=== PATIENT | female | born 1940 | race Caucasian/White ===

== ENCOUNTER 2020-10-21 17:50 | Outpatient (REF) | payer MEDICARE, OTHER, SELFPAY ==
[2020-10-21 21:04] LABS: Abs Immature Grans 0.04 10^3/uL (0.0-0.06); Absolute Basophil Count 0.04 10^3/uL (0.0-0.2); Absolute Eosinophil Count 0.14 10^3/uL (0.0-0.7); Absolute Lymphocyte Count 1.91 10^3/uL (1.2-3.4); Absolute Monocyte Count 1.05 10^3/uL (0.1-0.8); Basophils % 0.4; Eosinophils % 1.3; HCT 44.7 % (36.0-46.0); HGB 14.7 g/dL (11.2-15.7); Immature Grans % 0.4; Lymphocytes % 17.2; MCH 29.8 pg (27.0-33.0); MCHC 32.9 % (32.0-36.0); MCV 90.7 fL (80-95); Monocytes % 9.5; Neutrophils % 71.2; Nucleated RBC 0 %; Platelet Count 165 10^3/uL (130-400); RBC 4.93 10^6/uL (3.93-5.22); RDW 13.8 % (11.7-14.6); RDW-SD 46.3 fL
[2020-10-21 21:30] LABS: ALT 21 U/L (14-59); AST 10 U/L (15-37); Albumin 3.6 g/dL (3.4-5.0); Alkaline Phosphatase 88 U/L (46-116); Anion Gap 10.7 mmol/L (3-11); BUN 11 mg/dL (7-18); Bilirubin, Total 1.3 mg/dL (0.2-1.0); CO2 26.3 mmol/L (21.0-32.0); CREATININE 0.9 mg/dL (0.55-1.02); Calcium 8.8 mg/dL (8.5-10.1); Chloride 105 mmol/L (98-107); Glucose 91 mg/dL (74-106); Potassium 4.2 mmol/L (3.5-5.1); Sodium 142 mmol/L (136-145); Total Protein 7.3 g/dL (6.4-8.2)
== END 2020-10-21 17:51 | disposition home or self-care (01) ==
LOC: NCHCN 17:50
PROVIDERS: PCP Family Medicine; Visit Provider Registered Nurse
DX: R10.9 Unspecified abdominal pain (principal)
CPT/HCPCS: 80053; 87077; 85025; 87086; 87186

== ENCOUNTER 2022-09-28 13:09 | Outpatient (REF) | payer MEDICARE, OTHER, SELFPAY ==
--- OUTSIDE RECORDS SUMMARY | 2022-09-28 13:22 | XMS_ITS | CCD ---
Author Name Unknown Address [address] [place] [address] [id number] Organization Unknown Address [address] [place] [address] [id number] Care Team Providers Care Heater Installer Name Role Phone CRISTIANA CLEANING Attending Physician [phone] CRISTIANA CLEANING Er Physician [phone] LAMAR Lugo Registered Nurse [phone] DALJIT Hollis Registered Nurse [phone] Vital Signs Vital Sign Value Unit Date/Time Recent/Initial ? Height 62 in 09/18/2022 08:20 Most Rec ent VS BP Systolic 158 mmHg 09/18/2022 08:20 Initial VS BP Diastolic 109 mmHg 09/18/2022 08:20 Initia l VS Respiratory Rate 22 bpm 09/18/2022 08:20 In itial VS Heart Rate 112 bpm 09/18/2022 08:20 Initial VS O2 % BldC Oximetry 96 % 09/18/2022 08:20 Initial VS Body Temperature 37 degrees 09/18/2022 08:20 In itial VS Weight Measured 224 lbs 09/18/2022 09:03 Ini tial VS BP Systolic 139 mmHg 09/18/2022 13:37 Most Re cent VS BP Diastolic 80 mmHg 09/18/2022 13:37 Most R ecent VS Respiratory Rate 16 bpm 09/18/2022 13:[address] Recent VS Heart Rate 78 bpm 09/18/2022 13:37 Most Rec ent VS O2 % BldC Oximetry 97 % 09/18/2022 13:37 Most Recent VS Body Temperature 36.6 degrees 09/18/2022 13:[address] Recent VS Allergies Allergy Code Allergy Type Reaction Status No Known Drug Allergies 0 No known drug allergies Active Procedures Unknown or Not Available. History of Immunizations Unknown or Not Available. Problems Problem Code Start Date Resolved Date Status Sleep apnea [id number] Active Results COMPREHENSIVE METABOLIC PANE L (CMP) - Collect Date/Time: 09/18/2022 08:50 Test Name Code Test Result Test Units Test Ref Rang e GLUCOSE 2345-7 120 mg/dL L=70 H=116 BUN 3094-0 19 mg/dL L=6 H=25 CREATININE 2160-0 0.90 mg/dL L=0.51 H=0.95 SODIUM SERUM 2951-2 136 mmol/L L=136 H=145 POTASSIUM SERUM 2823-3 4.1 mmol/L L=3.4 H=5 .2 CHLORIDE SERUM 2075-0 103 mmol/L L=96 H=110 CARBON DIOXIDE (CO2) 2028-9 27 mmol/L L=22 H=34 ANION GAP 42852-2 6.2 mmol/L CALCIUM SERUM 20437-7 9.2 mg/dL L=8.2 H=10. 2 BILIRUBIN TOTAL 1975-2 0.6 mg/dL L=0.0 H=1 .3 ALK. PHOS. 6768-6 90 U/L L=46 H=116 SGOT (AST) 1920-8 15 U/L L=15 H=37 SGPT (ALT) 1742-6 25 U/L L=12 H=78 TOTAL PROTEIN 2885-2 7.4 gm/dL L=6.0 H=8.0 ALBUMIN 1751-7 3.5 gm/dL L=3.4 H=5.0 AGE 82 years eGFR (non-Afr.Amer.) 05204-9 60 mL/min eGFR (Afr-Senegalese) 13244-2 73 mL/min LACTIC ACID - Collect Date/T bonnie: 09/18/2022 08:50 Test Name Code Test Result Test Units Test Ref Rang e LACTIC ACID 09805-3 1.8 mmol/L L=0.7 H=2.1 LIPASE* NEW - Collect Date/T bonnie: 09/18/2022 08:50 Test Name Code Test Result Test Units Test Ref Rang e LIPASE. 50 U/L L=16 H=77 CBC W/ DIFFERENTIAL* - Colle ct Date/Time: 09/18/2022 08:50 Test Name Code Test Result Test Units Test Ref Rang e WBC 6690-2 8.89 th/cmm L=5.00 H=10.00 NEUT % 86.1 % L=40.0 H=80.0 LYMPH % 6.9 % L=10.0 H=50.0 MONO % 76657-0 5.1 % L=2.0 H=12.0 EOS % 1.3 % L=0.0 H=8.0 BASO % 0.4 % L=0.0 H=3.0 IG % 2514-8 0.2 % L=0.0 H=1.1 NRBC % 16171-9 0.0 % L=0.0 H=0.0 NEUT abs count 751-8 7.7 th/cmm L=1.6 H=8. 4 LYMPH abs count 731-0 0.6 th/cmm L=1.5 H=4 .0 MONO abs count 742-7 0.5 th/cmm L=0.2 H=1. 0 EOS abs count 711-2 0.1 th/cmm L=0.0 H=0.5 BASO abs count 704-7 0.0 th/cmm L=0.0 H=0. 2 IG abs count 05625-0 0.0 th/cmm L=0.0 H=0.1 NRBC abs count 47194-0 0.0 mil/cmm L=0.0 H=0. 0 RBC 789-8 5.02 mil/cmm L=3.90 H=5.40 HEMOGLOBIN 718-7 15.3 gm/dL L=12.0 H=16.0 HEMATOCRIT 4544-3 46 % L=37 H=47 MCV 787-2 92 fL L=82 H=92 MCH 785-6 30.5 pg L=27.0 H=31.0 MCHC 786-4 33.0 % L=32.0 H=36.0 RDW-SD 788-0 46.2 fL L=39.0 H=49.0 PLATELET COUNT 777-3 173 th/cmm L=150 H=45 0 URINALYSIS WITH REFLEX CULT IF POSITIVE* - Collect Date/Time: 09/18/2022 09:50 Test Name Code Test Result Test Units Test Ref Rang e COLLECTION MODE: 65649-0 CLEAN CATCH N/A Color 5778-6 YELLOW N/A yellow Appearance 5767-9 CLEAR N/A clear Glucose urine 93871-0 NEGATIVE N/A negative mg /dl Bilirubin 5770-3 NEGATIVE N/A negative Ketones 2514-8 NEGATIVE N/A negative mg/dl Spec gravity 5811-5 1.010 N/A 1.003 - 1.03 0 pH urine 2756-5 7.0 N/A 5.0 - 7.0 Protein 89974-5 NEGATIVE N/A negative mg/dl Urobilinogen 98298-5 0.2 N/A <or= 1 EU/dl Nitrite. 5802-4 NEGATIVE N/A negative Blood 5794-3 NEGATIVE N/A negative Leukocytes. NEGATIVE N/A negative MICROSCOPIC NOT INDICAT N/A Active Medications Unknown or Not Available. Medications Administered During Visit Medication Dose Units Frequency Route Date/Time of Last Dose SODIUM CHLORIDE 0.9% 500ML 500 ML X1 IV 09/18/2022 09:03 ACETAMINOPHEN INJ IVPB: 1000MG/100ML 1000 MG X1 IVPB 09/18/2022 11:2 0 AMPICILLIN/SULBACTAM INJ SDV: 3GM 3 GM X1 IVPB 09/18/2022 12:47 Encounters Encounter Diagnosis Diagnosis Code Start Date Diverticulitis of large intestine without compli cation [id number] 09/18/2022 Social History Smoking Status Code Start Date End Date Never smoker [id number] Patient Decision Aids Unknown or Not Available. Discharge Instructions You were admitted to [facility] on 09/18/2022 08:08 with a principal diagnosis of Diverticulitis of large intestine without perforation or abscess without bleeding You had the following tests done:URINALYSIS WITH REFLEX CULT IF POSITIVE*CBC W/ DIFFERENTIAL*COMPREHENSIVE METABOLIC PANEL (CMP)LACTIC ACIDLIPASE* NEW You were discharged from [facility] on 09/18/2022 13:53 Should you have any questions prior to discharge, please contact a member of your healthcare team. If you have left the hospital and have any questions, please contact your primary care physician. Chief Complaint and Reason For Visit Chief Complaint Date of Onset ABDOMEN PAIN NAUSEA Function Status Unknown or Not Available. Plan of Care Unknown or Not Available. Referral/Transition of Care Unknown or Not Available.
--- OUTSIDE RECORDS SUMMARY | 2022-09-28 13:23 | XMS_ITS | CCD ---
Author Name Unknown Address [address] [place] [address] [phone] Organization Unknown Address [address] [place] [address] [phone] Care Team Providers Care Master Sheet Clerk Name Role Phone TALI BARBA MD Attending Physician [phone] TALI BARBA MD Er Physician [phone] Vital Signs Unknown or Not Available. Allergies Allergy Code Allergy Type Reaction Status No Known Drug Allergies 0 No known drug allergies Active Procedures Unknown or Not Available. History of Immunizations Unknown or Not Available. Problems Problem Code Start Date Resolved Date Status Sleep apnea [id number] Active Results COMPREHENSIVE METABOLIC PANE L (CMP) - Collect Date/Time: 10/25/2020 09:29 Test Name Code Test Result Test Units Test Ref Rang e GLUCOSE 2345-7 96 mg/dL L=70 H=116 BUN 3094-0 10 mg/dL L=6 H=25 CREATININE 2160-0 0.91 mg/dL L=0.51 H=0.95 SODIUM SERUM 2951-2 141 mmol/L L=136 H=145 POTASSIUM SERUM 2823-3 3.5 mmol/L L=3.4 H=5 .2 CHLORIDE SERUM 2075-0 104 mmol/L L=96 H=110 CARBON DIOXIDE (CO2) 2028-9 27 mmol/L L=22 H=34 ANION GAP 25540-4 9.7 mmol/L CALCIUM SERUM 82577-4 8.9 mg/dL L=8.2 H=10. 2 BILIRUBIN TOTAL 1975-2 0.5 mg/dL L=0.0 H=1 .3 ALK. PHOS. 6768-6 85 U/L L=46 H=116 SGOT (AST) 1920-8 16 U/L L=15 H=37 SGPT (ALT) 1742-6 26 U/L L=12 H=78 TOTAL PROTEIN 2885-2 7.8 gm/dL L=6.0 H=8.0 ALBUMIN 1751-7 3.4 gm/dL L=3.4 H=5.0 AGE 80 years eGFR (non-Afr.Amer.) 98891-6 59 mL/min eGFR (Afr-Senegalese) 93452-7 72 mL/min LACTIC ACID - Collect Date/T bonnie: 10/25/2020 09:29 Test Name Code Test Result Test Units Test Ref Rang e LACTIC ACID 88763-8 1.8 mmol/L L=0.7 H=2.1 CBC W/ DIFFERENTIAL - [facility] t Date/Time: 10/25/2020 09:29 Test Name Code Test Result Test Units Test Ref Rang e WBC 6690-2 4.17 th/cmm L=5.00 H=10.00 NEUT % 59.9 % L=40.0 H=80.0 LYMPH % 24.7 % L=10.0 H=50.0 MONO % 23108-2 10.6 % L=2.0 H=12.0 EOS % 3.4 % L=0.0 H=8.0 BASO % 1.2 % L=0.0 H=3.0 IG % 2514-8 0.2 % L=0.0 H=1.1 NRBC % 41237-6 0.0 % L=0.0 H=0.0 NEUT abs count 751-8 2.5 th/cmm L=1.6 H=8. 4 LYMPH abs count 731-0 1.0 th/cmm L=1.5 H=4 .0 MONO abs count 742-7 0.4 th/cmm L=0.2 H=1. 0 EOS abs count 711-2 0.1 th/cmm L=0.0 H=0.5 BASO abs count 704-7 0.1 th/cmm L=0.0 H=0. 2 IG abs count 20036-9 0.0 th/cmm L=0.0 H=0.1 NRBC abs count 18503-2 0.0 mil/cmm L=0.0 H=0. 0 RBC 789-8 4.98 mil/cmm L=3.90 H=5.40 HEMOGLOBIN 718-7 15.0 gm/dL L=12.0 H=16.0 HEMATOCRIT 4544-3 45 % L=37 H=47 MCV 787-2 90 fL L=82 H=92 MCH 785-6 30.1 pg L=27.0 H=31.0 MCHC 786-4 33.5 % L=32.0 H=36.0 RDW-SD 788-0 43.4 fL L=39.0 H=49.0 PLATELET COUNT 777-3 231 th/cmm L=150 H=45 0 PT PROTHROMBIN TIME - Collec t Date/Time: 10/25/2020 09:45 Test Name Code Test Result Test Units Test Ref Rang e PROTIME 5902-2 11.5 seconds L=9.3 H=11.4 INR 63384-6 1.13 L=2.00 H=3.00 TYPE AND SCREEN - Collect Da te/Time: 10/25/2020 09:29 Test Name Code Test Result Test Units Test Ref Rang e Blood Group 883-9 O N/A Rh (D) 09505-4 POSITIVE N/A Antibody Screen 1005-8 NEGATIVE N/A Active Medications Medication Code Dose Units Frequency Route Modificatio n Start Date/Time Augmentin 875MG-125MG Oral Tablet 948228 1 TABLET TWICE A DAY ORAL 09/25/19 17:50 Prescription Detail TAKE 1 TABLET ORAL TWICE A DAY Augmentin 875MG-125MG Oral Tablet 080585 1 TABLET TWICE A DAY ORAL 09/19/19 12:57 Prescription Detail TAKE 1 TABLET ORAL TWICE A DAY Ondansetron 4MG Oral Tablet, Disintegrating 637179 1 TABLET NEEDED EVERY 6 HOURS ORAL 09/18/2022 12:57 Prescription Detail TAKE 1 TABLET ORAL NEEDED EVERY 6 SHERINE RS FOR Nausea/Vomiting LORazepam 0.5MG Oral Tablet 994415 0.5 MILLIGRAMS NEEDED AT BEDTIME BY MOUTH 04/14/2014 09:46 Prescription Detail TAKE 0.5 MILLIGRAMS BY MOUTH NEEDED A T BEDTIME Medications Administered During Visit Unknown or Not Available. Encounters Encounter Diagnosis Diagnosis Code Start Date Diverticulitis of intestine, part unspecified, without perforation or abscess without bleeding K5792 10/25/2020 Social History Smoking Status Code Start Date End Date Never smoker [id number] Patient Decision Aids Unknown or Not Available. Discharge Instructions You were admitted to [facility] 01 on 10/25/2020 08:47 with a principal diagnosis of Diverticulitis of intestine, part unspecified, without perforation or abscess without bleeding You had the following tests done:PT PROTHROMBIN TIMECBC W/ DIFFERENTIALCOMPREHENSIVE METABOLIC PANEL (CMP)LACTIC ACIDTYPE AND SCREEN You were discharged from [facility] on 10/25/2020 11:05 Should you have any questions prior to discharge, please contact a member of your healthcare team. If you have left the hospital and have any questions, please contact your primary care physician. Chief Complaint and Reason For Visit Chief Complaint Date of Onset BLEEDING FROM COLON Function Status Unknown or Not Available. Plan of Care Unknown or Not Available. Referral/Transition of Care Unknown or Not Available.
--- OUTSIDE RECORDS SUMMARY | 2022-09-28 13:23 | XMS_ITS | CCD ---
Author Name Unknown Address [address] [place] [address] [id number] Organization Unknown Address [address] [place] [address] [phone] Care Team Providers Care Hand Candy Dipper Name Role Phone GINO JOSHI Attending Physician [phone] TOLU NOYOLA Er Physician 1 [phone] FILIBERTO Adams Registered Nurse [phone] Vital Signs Vital Sign Value Unit Date/Time Recent/Initial ? BMI (Body Mass Index) 39.65 kg/m^2 09/24/2022 14: 58 Initial VS Weight Measured 216.8 lbs 09/24/2022 14:58 Ini tial VS Height 62 in 09/24/2022 14:58 Initial VS BSA (Body Surface Area) 2.07 m^2 09/24/2022 1 4:58 Initial VS BP Systolic 147 mmHg 09/24/2022 14:58 Initial VS BP Diastolic 81 mmHg 09/24/2022 14:58 Initia l VS Respiratory Rate 20 bpm 09/24/2022 14:58 In itial VS Heart Rate 73 bpm 09/24/2022 14:58 Initial VS O2 % BldC Oximetry 97 % 09/24/2022 14:58 Initial VS Body Temperature 36.6 degrees 09/24/2022 14:58 In itial VS BP Systolic 135 mmHg 09/24/2022 18:00 Most Re cent VS BP Diastolic 95 mmHg 09/24/2022 18:00 Most R ecent VS Respiratory Rate 18 bpm 09/24/2022 18:[address] Recent VS Heart Rate 61 bpm 09/24/2022 18:00 Most Rec ent VS O2 % BldC Oximetry 97 % 09/24/2022 18:00 Most Recent VS Allergies Allergy Code Allergy Type Reaction Status No Known Drug Allergies 0 No known drug allergies Active Procedures Unknown or Not Available. History of Immunizations Unknown or Not Available. Problems Problem Code Start Date Resolved Date Status Sleep apnea [id number] Active Results COMPREHENSIVE METABOLIC PANE L (CMP) - Collect Date/Time: 09/24/2022 15:00 Test Name Code Test Result Test Units Test Ref Rang e GLUCOSE 2345-7 95 mg/dL L=70 H=116 BUN 3094-0 8 mg/dL L=6 H=25 CREATININE 2160-0 0.96 mg/dL L=0.51 H=0.95 SODIUM SERUM 2951-2 138 mmol/L L=136 H=145 POTASSIUM SERUM 2823-3 3.2 mmol/L L=3.4 H=5 .2 CHLORIDE SERUM 2075-0 104 mmol/L L=96 H=110 CARBON DIOXIDE (CO2) 2028-9 24 mmol/L L=22 H=34 ANION GAP 53351-0 10.1 mmol/L CALCIUM SERUM 36689-9 9.2 mg/dL L=8.2 H=10. 2 BILIRUBIN TOTAL 1975-2 0.7 mg/dL L=0.0 H=1 .3 ALK. PHOS. 6768-6 75 U/L L=46 H=116 SGOT (AST) 1920-8 19 U/L L=15 H=37 SGPT (ALT) 1742-6 29 U/L L=12 H=78 TOTAL PROTEIN 2885-2 7.7 gm/dL L=6.0 H=8.0 ALBUMIN 1751-7 3.8 gm/dL L=3.4 H=5.0 AGE 82 years eGFR (non-Afr.Amer.) 35250-1 56 mL/min eGFR (Afr-Tongan) 71312-6 67 mL/min LIPASE* NEW - Collect Date/T bonnie: 09/24/2022 15:00 Test Name Code Test Result Test Units Test Ref Rang e LIPASE. 40 U/L L=16 H=77 CBC W/ DIFFERENTIAL* - Colle ct Date/Time: 09/24/2022 15:00 Test Name Code Test Result Test Units Test Ref Rang e WBC 6690-2 8.46 th/cmm L=5.00 H=10.00 NEUT % 68.2 % L=40.0 H=80.0 LYMPH % 20.9 % L=10.0 H=50.0 MONO % 43267-3 7.7 % L=2.0 H=12.0 EOS % 2.5 % L=0.0 H=8.0 BASO % 0.5 % L=0.0 H=3.0 IG % 2514-8 0.2 % L=0.0 H=1.1 NRBC % 28186-2 0.0 % L=0.0 H=0.0 NEUT abs count 751-8 5.8 th/cmm L=1.6 H=8. 4 LYMPH abs count 731-0 1.8 th/cmm L=1.5 H=4 .0 MONO abs count 742-7 0.7 th/cmm L=0.2 H=1. 0 EOS abs count 711-2 0.2 th/cmm L=0.0 H=0.5 BASO abs count 704-7 0.0 th/cmm L=0.0 H=0. 2 IG abs count 60319-3 0.0 th/cmm L=0.0 H=0.1 NRBC abs count 72176-7 0.0 mil/cmm L=0.0 H=0. 0 RBC 789-8 5.27 mil/cmm L=3.90 H=5.40 HEMOGLOBIN 718-7 15.8 gm/dL L=12.0 H=16.0 HEMATOCRIT 4544-3 47 % L=37 H=47 MCV 787-2 90 fL L=82 H=92 MCH 785-6 30.0 pg L=27.0 H=31.0 MCHC 786-4 33.3 % L=32.0 H=36.0 RDW-SD 788-0 43.4 fL L=39.0 H=49.0 PLATELET COUNT 777-3 189 th/cmm L=150 H=45 0 Active Medications Unknown or Not Available. Medications Administered During Visit Medication Dose Units Frequency Route Date/Time of Last Dose SODIUM CHLORIDE 0.9% 500ML 500 ML X1 IV 09/24/2022 15:04 Encounters Encounter Diagnosis Diagnosis Code Start Date Diverticulitis of intestine, part unspecified, without perforation or abscess with bleeding [id number] 09/24/2022 Social History Smoking Status Code Start Date End Date Never smoker [id number] Patient Decision Aids Unknown or Not Available. Discharge Instructions You were admitted to [facility] on 09/24/2022 14:37 with a principal diagnosis of Diverticulitis of intestine, part unspecified, without perforation or abscess with bleeding You had the following tests done:CBC W/ DIFFERENTIAL*COMPREHENSIVE METABOLIC PANEL (CMP)LIPASE* NEW You were discharged from [facility] on 09/24/2022 18:06 Should you have any questions prior to discharge, please contact a member of your healthcare team. If you have left the hospital and have any questions, please contact your primary care physician. Chief Complaint and Reason For Visit Chief Complaint Date of Onset BLOOD IN STOOL Function Status Unknown or Not Available. Plan of Care Unknown or Not Available. Referral/Transition of Care Unknown or Not Available.
--- OUTSIDE RECORDS SUMMARY | 2022-09-28 13:23 | XMS_ITS | CCD ---
Author Name Unknown Address [address] [place] [address] [phone] Organization Unknown Address [address] [place] [address] [phone] Care Team Providers Care Capital Markets Specialist Name Role Phone LYNNDEBHA Attending Physician [phone] Vital Signs Unknown or Not Available. Allergies Allergy Code Allergy Type Reaction Status No Known Drug Allergies 0 No known drug allergies Active Procedures Unknown or Not Available. History of Immunizations Unknown or Not Available. Problems Problem Code Start Date Resolved Date Status Sleep apnea [id number] Active Results Unknown or Not Available. Active Medications Medication Code Dose Units Frequency Route Modificatio n Start Date/Time Augmentin 875MG-125MG Oral Tablet 070873 1 TABLET TWICE A DAY ORAL 09/25/19 17:50 Prescription Detail TAKE 1 TABLET ORAL TWICE A DAY Augmentin 875MG-125MG Oral Tablet 281735 1 TABLET TWICE A DAY ORAL 09/19/19 12:57 Prescription Detail TAKE 1 TABLET ORAL TWICE A DAY Ondansetron 4MG Oral Tablet, Disintegrating 323813 1 TABLET NEEDED EVERY 6 HOURS ORAL 09/18/2022 12:57 Prescription Detail TAKE 1 TABLET ORAL NEEDED EVERY 6 SHERINE RS FOR Nausea/Vomiting LORazepam 0.5MG Oral Tablet 132713 0.5 MILLIGRAMS NEEDED AT BEDTIME BY MOUTH 04/14/2014 09:46 Prescription Detail TAKE 0.5 MILLIGRAMS BY MOUTH NEEDED A T BEDTIME Medications Administered During Visit Unknown or Not Available. Encounters Encounter Diagnosis Diagnosis Code Start Date Diverticulitis of large inte mirta without perforation or abscess without bleeding K5732 10/22/2020 Social History Smoking Status Code Start Date End Date Never smoker [id number] Patient Decision Aids Unknown or Not Available. Discharge Instructions You were admitted to [facility] on 10/22/2020 09:37 with a principal diagnosis of Diverticulitis of large intestine without perforation or abscess without bleeding You were discharged from [facility] 01 on 10/22/2020 09:37 Should you have any questions prior to discharge, please contact a member of your healthcare team. If you have left the hospital and have any questions, please contact your primary care physician. Chief Complaint and Reason For Visit Unknown or Not Available. Function Status Unknown or Not Available. Plan of Care Unknown or Not Available. Referral/Transition of Care Unknown or Not Available.
[2022-09-28 16:48] LABS: Abs Immature Grans 0.03 10^3/uL (0.0-0.06); Absolute Basophil Count 0.03 10^3/uL (0.0-0.2); Absolute Eosinophil Count 0.23 10^3/uL (0.0-0.7); Absolute Lymphocyte Count 1.31 10^3/uL (1.2-3.4); Absolute Monocyte Count 0.63 10^3/uL (0.1-0.8); Absolute Neutrophil Count 7.01 10^3/uL (1.2-6.7); Basophils % 0.3; Eosinophils % 2.5; HCT 44.4 % (36.0-46.0); HGB 14.7 g/dL (11.2-15.7); Immature Grans % 0.3; Lymphocytes % 14.2; MCH 30.2 pg (27.0-33.0); MCHC 33.1 % (32.0-36.0); MCV 91 fL (80-95); MPV 12.4 fL (8.0-11.0); Monocytes % 6.8; Neutrophils % 75.9; Platelet Count 168 10^3/uL (130-400); RBC 4.87 10^6/uL (3.93-5.22); RDW 13.7 % (11.7-14.6); RDW-SD 46.3 fL; WBC 9.24 10^3/uL (4.4-10.8)
[2022-09-28 18:15] LABS: ALT 19 U/L (14-59); AST 21 U/L (15-37); Albumin 3.4 g/dL (3.4-5.0); Alkaline Phosphatase 77 U/L (46-116); Anion Gap 9.9 mmol/L (3-11); BUN 11 mg/dL (7-18); Bilirubin, Total 0.5 mg/dL (0.2-1.0); CO2 25.1 mmol/L (21.0-32.0); CREATININE 0.8 mg/dL (0.55-1.02); Calcium 8.7 mg/dL (8.5-10.1); Chloride 109 mmol/L (98-107); Estimated GFR 73.52 (mL/min/1.73m2); Glucose 87 mg/dL (74-106); Potassium 4.2 mmol/L (3.5-5.1); Sodium 144 mmol/L (136-145)
== END 2022-09-28 13:10 | disposition home or self-care (01) ==
LOC: NCHCN 13:09
PROVIDERS: PCP Family Medicine; Visit Provider Registered Nurse
DX: R10.9 Unspecified abdominal pain (principal); R03.0 Elevated blood-pressure reading, without diagnosis of hypertension; R82.998 Other abnormal findings in urine
CPT/HCPCS: 80053; 85025; 87086

== ENCOUNTER 2023-01-26 22:21 | Outpatient (REF) | payer MEDICARE, OTHER, SELFPAY ==
[2023-01-26 21:33] LABS: Calculated LDL 105 mg/dL (<100); Cholesterol 183 mg/dL (<200); HDL Cholesterol 44 mg/dL (40-60); TSH 0.68 uIU/mL (0.36-3.74); Triglyceride 172 mg/dL (<150)
== END 2023-01-26 22:22 | disposition home or self-care (01) ==
LOC: NCHCN 22:21
PROVIDERS: PCP Family Medicine; Visit Provider Family Medicine
DX: E78.5 Hyperlipidemia, unspecified (principal); R03.0 Elevated blood-pressure reading, without diagnosis of hypertension; Z00.8 Encounter for other general examination
CPT/HCPCS: 80061; 84443

== ENCOUNTER 2023-05-28 14:29 | Outpatient (REF) | payer MEDICARE, OTHER, SELFPAY ==
[2023-05-28 15:07] LABS: FREE T4 1.55 ng/dL (0.76-1.46); TSH 0.06 uIU/Ml (0.36-3.74)
== END 2023-05-28 14:30 | disposition home or self-care (01) ==
LOC: NCHCN 14:29
PROVIDERS: PCP Family Medicine; Visit Provider Family Medicine
DX: R94.6 Abnormal results of thyroid function studies (principal); E78.5 Hyperlipidemia, unspecified; Z13.228 Encounter for screening for other metabolic disorders
CPT/HCPCS: 84439; 84443

== ENCOUNTER 2023-06-20 14:40 | Outpatient (REF) | payer MEDICARE, OTHER, SELFPAY ==
[2023-06-20 17:53] LABS: HCT 36.8 % (36.0-46.0); HGB 11.6 g/dL (11.2-15.7)
== END 2023-06-20 14:41 | disposition home or self-care (01) ==
LOC: NCHCN 14:40
PROVIDERS: PCP Family Medicine; Visit Provider Family Medicine
DX: K57.90 Diverticulosis of intestine, part unspecified, without perforation or abscess without bleeding (principal); T81.42XA Infection following a procedure, deep incisional surgical site, initial encounter
CPT/HCPCS: 85014; 85018

== ENCOUNTER 2024-02-14 02:03 | Outpatient (CLI) | payer MEDICARE, OTHER, SELFPAY ==
--- NOTE | 2024-02-14 | DI.NM_ITS ---
Exam(s) NM I123 THYROID UP SC DAY 1 NM I123 THYROID UP SC DAY 2 CLINICAL HISTORY: Thyroid nodule, E04.1. COMPARISON: There are no thyroid ultrasound images available time of this interpretation TECHNIQUE: Capsule Dose: 328 uCi I-123 Images: At 4 hours and 24 hours. FINDINGS: Scintiphotos reveal gross asymmetry in the thyroid lobes. Is difficult to determine if there is roberto s enlargement of the right lobe or if there is a photopenic defect in the left lower lobe consistent with a cold nodule. At 4 hours the gland uptake is 7.7 percent which is within normal limits. Normal in our department a t 4 hours is 6-18 percent At 24 hours the gland uptake is also within normal limits, registering 22.7%. Normal 24 hour uptake is 10-35 % IMPRESSION: 1. Normal iodine uptake at both 4 and 24 hours, as described above. 2. Significant asymmetry in the appearance of the thyroid lobes. Other consistent with prominent co ld nodule in the inferior aspect of the left lobe or enlarged right lobe. Will need to correlate wit h ultrasound images of the thyroid (which are not available at the time of this nuclear scan interpre tation). DATA REPOSITORY:
== END 2024-02-14 02:23 ==
LOC: DI 02:04
PROVIDERS: PCP Family Medicine; Visit Provider Internal Medicine
DX: E04.1 Nontoxic single thyroid nodule (principal)
CPT/HCPCS: 78014; A9512

== ENCOUNTER 2024-04-04 16:36 | Outpatient (REF) | payer MEDICARE, OTHER, SELFPAY ==
[2024-04-04 14:57] LABS: Hemoglobin A1C 5.5 % (<5.7)
[2024-04-04 14:58] LABS: ALT 12 U/L (14-59); AST 12 U/L (15-37); Albumin 3.8 g/dL (3.4-5.0); Alkaline Phosphatase 102 U/L (46-116); Anion Gap 5.9 mmol/L (3-11); BUN 13 mg/dL (7-18); Bilirubin, Total 0.53 mg/dL (0.2-1.0); CO2 28.1 mmol/L (21.0-32.0); CREATININE 0.9 mg/dL (0.55-1.02); Calcium 9.5 mg/dL (8.5-10.1); Chloride 107 mmol/L (98-107); Estimated GFR 63.04 (mL/min/1.73m2); Glucose 96 mg/dL (74-106); Potassium 4.4 mmol/L (3.5-5.1); Sodium 141 mmol/L (136-145); Total Protein 8.2 g/dL (6.4-8.2)
== END 2024-04-04 16:37 | disposition home or self-care (01) ==
LOC: NCHCN 16:36
PROVIDERS: PCP Family Medicine; Visit Provider Family Medicine
DX: R73.9 Hyperglycemia, unspecified (principal)
CPT/HCPCS: 80053; 83036

== ENCOUNTER 2024-08-01 21:00 | Outpatient (REF) | payer MEDICARE, OTHER, SELFPAY ==
[2024-08-01 15:57] LABS: HCT 39.7 % (36.0-46.0); HGB 12.4 g/dL (11.2-15.7); MCH 26.8 pg (27.0-33.0); MCHC 31.2 % (32.0-36.0); MCV 86 fL (80-95); MPV 11.8 fL (8.0-11.0); Platelet Count 224 10^3/uL (130-400); RBC 4.62 10^6/uL (3.93-5.22); RDW 14.9 % (11.7-14.6); RDW-SD 46.7 fL; WBC 7.13 10^3/uL (4.4-10.8)
[2024-08-01 16:37] LABS: TSH (W/Ref FT4) 0.86 uIU/mL (0.36-3.74); Vitamin D 25 Total 59 ng/mL (30-100)
== END 2024-08-01 21:01 | disposition home or self-care (01) ==
LOC: NCHCN 21:00
PROVIDERS: PCP Family Medicine; Visit Provider Family Medicine
DX: R53.82 Chronic fatigue, unspecified (principal); E05.90 Thyrotoxicosis, unspecified without thyrotoxic crisis or storm
CPT/HCPCS: 82306; 85027; 84443

== ENCOUNTER 2024-08-20 00:10 | Outpatient (CLI) | payer MEDICARE, OTHER, SELFPAY ==
--- NOTE | 2024-08-20 12:30 | DI.US_ITS ---
APPROVED REPORT EXAM: Comprehensive 2D, Doppler, and color-flow Echocardiogram Indications: Exercise intolerance, Fatigue, evaluate for HFrEF, Murmur Other Information Study Quality: Fair. Technically limited study due to body habitus. Conclusion Normal left ventricular wall thickness and chamber size. Ejection fraction is 55%. Wall motion is n ormal Grossly normal right ventricular size and function Both atria are normal in size Aortic valve is mildly sclerotic and trileaflet without stenosis or regurgitation Mild mitral annular calcification, trace mitral regurgitation Ascending aorta measures 3.51 cm Wall motion Left Ventricle The left ventricle is normal size. The left ventricular systolic function is normal. The left ventric ular ejection fraction is within the normal range. There is normal left ventricular wall thickness. T here is normal LV segmental wall motion. There is no ventricular septal defect visualized. LVEF is 55 %. Right Ventricle Right ventricle is grossly normal in size. Right ventricular systolic function is grossly normal. Atria The left atrium size is normal. The right atrium size is normal. The interatrial septum is intact wit h no evidence for an atrial septal defect. Aortic Valve The Aortic valve is mildly sclerotic. Aortic valve is trileaflet. There is no aortic valvular stenosi s. No aortic regurgitation is present. Mitral Valve Mild mitral annular calcification. No evidence of mitral valve stenosis. Trace mitral regurgitation. Tricuspid Valve The tricuspid valve is normal in structure. There is no tricuspid valve stenosis. Trace tricuspid reg urgitation. Unable to assess PA pressure. Pulmonic Valve The pulmonary valve is normal in structure. There is no pulmonic valvular stenosis. Trace pulmonic re gurgitation. Great Vessels The aortic root is normal in size. The ascending aorta is mildly dilated. Aortic arch is not well vis ualized. IVC is normal in size and collapses >50% with inspiration. Pericardium There is no pericardial effusion. 2D Dimensions IVSD d PLAX 0.97 cm F: 0.6-1.0 Ao Root d 3.31 cm F: 2.7 - 3.3 LVPW d PLAX 0.96 cm F: 0.6 - 1.0 Ao Asc Diam d 3.51 cm F: 2.3 - 3.1 LVID d PLAX 4.00 cm F: 3.8 - 5.2 LVDs 2.86 cm F: 2.2 - 3.5 LV EF Teichholz 55.0 % FS 28.18 % LV EDV (Teich) 69.4 mL LV ESV (Teich) 31.2 mL M-Mode TAPSE 2.57 cm (M/F) >1.7 Auto EF LV EDV A4C 67.1 mL LV EDV A2C 90.8 mL LV EDV BP 77.3 mL LV ESV A4C 33.9 mL LV ESV A2C 41.0 mL LV ESV BP 36.6 mL LVEF(%) A4C 49.5 % LVEF(%) A2C 54.9 % LVEF(%) BP 52.7 % LV SV A4C 33.2 ml LV SV A2C 49.9 ml LV SV BP 40.7 ml LV CO A4C 2.9 L/min LV CO A2C 4.3 L/min LV CO BP 3.6 L/min HR A4C 88.46 BPM HR A2C 86.54 BPM LV EDV Index (BP) LA Volume LA Length A4C 5.7 cm LA Length A2C 5.6 cm LA Area A4C s 19.63 cm2 LA Area A2C s 20.34 cm2 LA Vol A4C A-L 57.31 mL LA Vol A2C A-L 62.81 mL LA Vol Biplane A-L 60.6 mL LA Vol/BSA A4C A-L LA Vol/BSA A2C A-L LA Vol/BSA BP A-L 31.4 mL/m2 LA Vol A4C MOD 53.3 mL LA Vol A2C MOD 58.4 mL LA Vol BP MOD 56.3 mL RA Volume RA Area A4C 16.5 cm2 RA ESV A4C (A-L) 45.6mL RA Vol/BSA A4C A-L RA Length A4C 5.1 cm RA ESV A4C (MOD) 42.2mL LV Diastology MV E' medial 0.077 (>0.07 m/s) MV E Vmax 0.82 (0.4-1.3 m/s) MV E/E' MED 10.65 (<14) MV A Vmax 1.00 (0.4-1.3 m/s) MV E' lateral 0.067 (>0.1 m/s) E/A Ratio 0.8 MV E/E' LAT 12.37 (<14) MV E' Average 0.072 m/s MV E/E'(average) 11.44 Aortic Valve AoV Vmax 1.90 m/s LVOT Vmax 1.13 m/s AoV Peak Grad 14.5 mmHg LVOT Peak Grad 5.1 mmHg AoV Area (Vmax) 1.78 cm2 LVOT VTI 0.239 m AoV VTI 0.369 m LVOT Mean Grad 2.5 mmHg AoV Mean Vic. 1.33 m/s LVOT SV 72.24 mL AoV Mean Grad 8.1 mmHg LVOT Diam s 1.95 cm AoV Area (VTI) 1.96 cm2 AV Regurg Peak Gr. 14.51 mmHg Velocity Ratio 0.59 Mitral Valve MV DT 282 (160-240 msec) MV Vmax TIPS 0.98 m/s MV Mean Grad 1.8 (<2mmHg) MV VTI 0.290 m Pulmonary Valve PV Vmax 1.16 (0.5-1.5 m/s) RVOT Vmax 0.74 m/s PV Peak Grad 5.4 mmHg RVOT Peak Gr. 2.2 mmHg PV Mean Vic 0.76 m/s RVOT VTI 0.162 m PV Mean Grad 2.6 mmHg RVOT Mean Gr. 1.3 mmHg Tricuspid Valve TV S' 0.18 m/s
== END 2024-08-20 00:30 ==
PROVIDERS: PCP Family Medicine; Visit Provider Internal Medicine Cardiovascular Disease
DX: R68.89 Other general symptoms and signs (principal); I35.8 Other nonrheumatic aortic valve disorders
CPT/HCPCS: 93306

== ENCOUNTER 2024-09-19 19:42 | Emergency (ER) | payer MEDICARE, OTHER, SELFPAY ==
[2024-09-19] VITALS (8 sets, daily range): BP systolic 160–174; BP diastolic 80–85; PULSE 72–89; RESP 30; TEMP 36.7; O2SAT 92–95
--- NOTE | 2024-09-19 19:45 | DI.CT_ITS ---
Exam(s) CT ABDOMEN PELVIS W EXAM: CT ABDOMEN PELVIS W CLINICAL HISTORY: ABD PAIN VOMITING. TECHNIQUE: Imaging Protocol: Axial computed tomography images with coronal and sagittal reformatted images were created and reviewed CONTRAST MATERIAL: Intravenous: Omnipaque 350 Contrast volume:100 ml Oral: no COMPARISON: No exams were available for comparison FINDINGS: ABDOMEN and PELVIS: Lung Bases: No acute findings. Large hiatal hernia. Liver: Normal density. Simple cysts. No suspicious mass. Gallbladder and biliary tract: Large calcified gallstone. No wall thickening or pericholecystic fluid. No biliary dilation. Pancreas: Normal density. No abnormal calcifications or inflammatory process. No evidence of mass. Spleen: Normal. Kidneys: Normal size, contour and axis. No radiodense stones. No obstructive uropathy. Large simple cyst from the lower pole of the right kidney measuring 14 cm. No suspicious masses seen. Adrenal glands: No masses seen. Vasculature: Abdominal aorta non-dilated. Moderate atherosclerotic changes. There is a filling defect in the right gonadal vein consistent with thrombus. The left gonadal vein appears patent. There remaining venous structures show no evidence of thrombus. Soft tissues: Left lower quadrant colostomy is unremarkable. Anterior midline scarring. Small fluid collection in the lower aspect of the scar measuring 2.5 x 2 by 3 cm.. Bladder: Nearly empty. No gross wall thickening. No calculi.No focal mass. Bowel: Large hiatal hernia without evidence of obstruction. At end the sigmoid resection, there is focal area bowel wall thickening with transition point in the midline of the upper pelvis with dilatation of proximal small bowel and decompressed distal bowel. There is air bubble with fluid collection in the midst of the abnormal bowel loops measuring 2 cm, suspicious for abscess. A small amount of fluid is noted in the adjacent peritoneum and right lower quadrant. Peritoneal cavity: Small amount of fluid right lower quadrant. Small fluid collection with air bubble in region abnormal bowel in the central upper pelvis consistent with abscess. no free air. Bones: scoliosis and degenerative changes. Large Schmorl's node inferior endplate of L3. Reproductive organs: Multiple calcified uterine fibroids. Lymph nodes: No pathologically enlarged lymph nodes. IMPRESSION:: Focal area of small bowel obstruction in the midline of the upper abdomen at the region of the sigmoid colon resection site. There is a 2 centimeter collection of air and fluid consistent with abscess. No free air. Right gonadal vein thrombosis. Large hiatal hernia. The preliminary [facility] report was reviewed. RADIATION DOSE DELIVERED: Total DLP DATA REPOSITORY: All CT scans at this facility are submitted to the National Radiology Data Registry (NRDR) Dose Index Registry (DIR) with the [employer] (ACR). RADIATION OPTIMIZATION: All CT scans at this facility use at least one of these dose optimization techniques: automated exposure control; mA and/or kV adjustment per patient size (includes targeted exams where dose is matched to clinical indication); or iterative reconstruction.
[2024-09-19 20:04] LABS: Abs Immature Grans 0.04 10^3/uL (0.0-0.06); Absolute Basophil Count 0.04 10^3/uL (0.0-0.2); Absolute Eosinophil Count 0.09 10^3/uL (0.0-0.7); Absolute Lymphocyte Count 1.19 10^3/uL (1.2-3.4); Absolute Monocyte Count 0.62 10^3/uL (0.1-0.8); Absolute Neutrophil Count 10.22 10^3/uL (1.2-6.7); Basophils % 0.3 %; Eosinophils % 0.7 %; HCT 40.2 % (36.0-46.0); HGB 12.5 g/dL (11.2-15.7); Immature Grans % 0.3 %; Lymphocytes % 9.8 %; MCHC 31.1 % (32.0-36.0); MCV 80 fL (80-95); MPV 11.1 fL (8.0-11.0); Monocytes % 5.1 %; Neutrophils % 83.8 %; Platelet Count 250 10^3/uL (130-400); RBC 5.01 10^6/uL (3.93-5.22); RDW 14.8 % (11.7-14.6); RDW-SD 43.2 fL; WBC 12.19 10^3/uL (4.4-10.8)
[2024-09-19] MEDS: FAMOTIDINE 20 MG in Normal Saline 100 ML 400 MG IVPB (20:06)
[2024-09-19] MEDS: Ondansetron 4 MG/2 ML VIAL IVP ×2 (20:07→22:43)
[2024-09-19] MEDS: Normal Saline Flush 10 ML SYR IVP (20:07)
[2024-09-19] MEDS: MORPHine 4 MG/ML SYR IVP ×2 (20:07→22:44)
[2024-09-19 20:25] LABS: ALT 16 U/L (14-59); AST 11 U/L (15-37); Albumin 3.6 g/dL (3.4-5.0); Alkaline Phosphatase 104 U/L (46-116); Anion Gap 9.4 mmol/L (3-11); BUN 16 mg/dL (7-18); Bilirubin, Total 0.6 mg/dL (0.2-1.0); CO2 27.6 mmol/L (21.0-32.0); CREATININE 0.8 mg/dL (0.55-1.02); Calcium 9.5 mg/dL (8.5-10.1); Chloride 101 mmol/L (98-107); Estimated GFR 72.61 (mL/min/1.73m2); Glucose 155 mg/dL (74-106); Lipase 23 U/L (<78); Magnesium 2.2 mg/dL (1.8-2.4); Potassium 3.9 mmol/L (3.5-5.1); Sodium 138 mmol/L (136-145); Total Protein 8.3 g/dL (6.4-8.2); Troponin I 4 ng/L (<or=51)
--- NOTE | 2024-09-19 21:09 | ED.GENADUL_ITS ---
Discharge Plan Disposition Patient Disposition: Transfer-Acute Inpatient Care Specific Acute Inpt Facility: [facility] Discharge Details Clinical Impression: SBO (small bowel obstruction) Primary Care Provider: Piper Camacho ED Provider: Michael June Home Meds and New Rx's Prescriptions: No Action losartan 25 mg tablet 25 mg PO ONCE Patient Comments: TAKE ONE TABLET BY MOUTH EVERY DAY FOR HIGH BLODD PRESSURE HPI General Date/Time Provider Initiated Documentation: 09/19/24 19:49 . Limitations to Documentation: no limitations . Information obtained by: patient and EMS . HPI Narrative: 84-year-old female with past medical history of complex surgical history presents with abdominal pain. Reports severe left-sided abdominal pain that comes in waves. Associated with nausea and vomiting. Has only been going on for today. She has been having some subjective fever and chills. She reports that she has had normal output from her ostomy. Related Data Home Medications ?Medication ?Instructions ?Recorded ?Confirmed losartan 25 mg tablet 25 mg PO ONCE 09/19/2409/19 Allergies Allergy/AdvReac Type Severity Reaction Status Date / Time Penicillins Allergy Intermediate Rash Verified 09/19/24 19:44 General Stated Complaint: Abd Prob NATASHA: 3 Exam Narrative Exam Narrative: Review of Systems: All systems reviewed & are unremarkable except as noted in HPI and below Well-developed, appears very uncomfortable NCAT RRR Unlabored respiratory effort Nondistended abdomen soft, ostomy in the left upper quadrant, just lateral to the ostomy there is significant abdominal tenderness, Course Vital Signs Vital signs: Vital Signs Temperature 36.7 C 09/19/24 19:35 Pulse 79 09/19/24 19:35 Respiratory Rate 30 H 09/19/24 19:35 Blood Pressure 174/85 H 09/19/24 19:35 Pulse Oximetry 95 09/19/24 19:35 Temperature 36.7 C 09/19/24 19:42 Pulse 79 09/19/24 19:42 Respiratory Rate 30 H 09/19/24 19:42 Blood Pressure 174/85 H 09/19/24 19:42 Blood Pressure Position Sitting 09/19/24 19:42 Pulse Oximetry 95 09/19/24 19:42 Oxygen Delivery Method Room Air 09/19/24 19:42 Oxygen Flow Rate 0 09/19/24 19:42 Lab/Test Results Lab/Test Results: Laboratory Tests Range/Units 09/19/24 09/19/24 09/19/24 19:55 20:49 22:49 WBC (4.4-10.8) 10^3/uL 12.19 H RBC (3.93-5.22) 10^6/uL 5.01 Hgb (11.2-15.7) g/dL 12.5 Hct (36.0-46.0) % 40.2 MCV (80-95) fL 80 MCH (27.0-33.0) pg 25.0 L MCHC (32.0-36.0) % 31.1 L RDW (11.7-14.6) % 14.8 H Plt Count (130-400) 10^3/uL 250 MPV (8.0-11.0) fL 11.1 H Immature Gran % % 0.3 Neutrophils % % 83.8 Lymphocytes % % 9.8 Monocytes % % 5.1 Eosinophils % % 0.7 Basophils % % 0.3 Nucleated RBC % (0.0-0.3) % 0.0 Absolute Neutrophils (1.2-6.7) 10^3/uL 10.22 H Absolute Lymphocytes (1.2-3.4) 10^3/uL 1.19 L Absolute Monocytes (0.1-0.8) 10^3/uL 0.62 Absolute Eosinophils (0.0-0.7) 10^3/uL 0.09 Absolute Basophils (0.0-0.2) 10^3/uL 0.04 Sodium (136-145) mmol/L 138 Potassium (3.5-5.1) mmol/L 3.9 Chloride (98-107) mmol/L 101 Carbon Dioxide (21.0-32.0) mmol/L 27.6 Anion Gap (3-11) mmol/L 9.4 BUN (7-18) mg/dL 16 Creatinine (0.55-1.02) mg/dL 0.8 Est GFR (CKD-EPI 2020) (mL/min/1.73m2) 72.61 Glucose (74-106) mg/dL 155 H Calcium (8.5-10.1) mg/dL 9.5 Magnesium (1.8-2.4) mg/dL 2.2 Total Bilirubin (0.2-1.0) mg/dL 0.6 AST (15-37) U/L 11 L ALT (14-59) U/L 16 Alkaline Phosphatase (46-116) U/L 104 Troponin I (<or=51) ng/L 4 Cancelled Cancelled Total Protein (6.4-8.2) g/dL 8.3 H Albumin (3.4-5.0) g/dL 3.6 Lipase (<78) U/L 23 Medical Decision Making Emergent evaluation of acute left-sided abdominal pain. Initial differential includes obstruction, kidney stone, less likely cardiopulmonary in origin. Plan for pain control, antiemetics, lab work and CT imaging. Lab work reviewed today there is mild leukocytosis at 12, no anemia, no electrolyte derangement. Troponin is not elevated, lipase is not elevated. Patient has thus far not been able to provide a urine sample, after IV antibiotic emetic and opiate pain medication, she has stopped having the spasms of pain. Discussed CT scan with radiologist, there is concern for very significant bowel obstruction. I have reached out to [facility] general surgery who is excepted the patient for transfer to the emergency department. An NG tube will be placed, patient patient will be kept upright to avoid aspiration. She will be transferred emergently for further management. Patient and daughter updated on plan. 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 I have personally provided 33 minutes of critical care time exclusive of time spent on separately billable procedures. Time includes review of laboratory data, radiology results, discussion with consultants, and monitoring for po tential decompensation. Interventions were performed as documented above [facility] All Active Problems (Updated 09/19/24 @ 23:14 by Michael June MD) SBO (small bowel obstruction) (Acute) Social History Smoking risk assessment performed?: No
[2024-09-19] MEDS: Omnipaque 350 MG/ML 100 ML BTL IJ (21:22)
[2024-09-19] MEDS: Normal Saline - Diluent 50 ML VIAL IJ (21:23)
--- NOTE | 2024-09-19 22:19 | DI.[facility]_ITS ---
PROCEDURE INFORMATION: Exam: CT Abdomen And Pelvis With Contrast Exam date and time: 09/19/2024 9:09 PM Age: 84 years old Clinical indication: Abd pain vomiting TECHNIQUE: Imaging protocol: Computed tomography of the abdomen and pelvis with contrast. Contrast material: OMNIPAQUE 350; Contrast volume: 100 ml; Contrast route: INTRAVENOUS (IV); COMPARISON: No relevant prior studies available. FINDINGS: Diaphragm: There is a large hiatal hernia noted containing the proximal region of the stomach and is filled with fluid and ingested material. Liver: A few simple appearing cysts are noted in the liver, measuring up to 1.6 cm in the dome of the liver. Gallbladder and biliary ducts: A large calcified gallstone is noted in the gallbladder. No evidence of significant gallbladder inflammation at this time. No ductal dilation. Pancreas: No pancreatic lesion seen. Spleen: The spleen is unremarkable, except for small calcification. No splenomegaly. Adrenal glands: Normal. No mass. Kidneys and ureters: The left kidney is unremarkable. There is a very large simple cyst in the right kidney measuring up to 14 cm in transverse dimension. No hydronephrosis. Stomach and bowel: There is dilation of a few small bowel loops in the mid lower pelvis with fecalization concerning for small bowel obstruction. The transition point of obstruction is seen in the region of the sigmoid colon resection site. An internal hernia is not excluded. A left lower quadrant colostomy is noted. Appendix: No evidence of appendicitis. Intraperitoneal space: A small amount of free fluid is seen in the lower abdomen. There is a 2.0 cm region of fluid and air seen at the region of obstruction transition point, which could possibly represent a fluid collection (image 73, series 8). Vasculature: There is a filling defect noted within the right gonadal vein, which is distended and is suspicious for thrombus (image 65, series 8). Lymph nodes: No enlarged lymph nodes. Urinary bladder: Unremarkable as visualized. Reproductive: Multiple calcified lesions in the uterus likely represent fibroids. Bones/joints: No acute fracture. Lumbar spine degenerative changes noted with spinal canal stenosis and neural foraminal narrowing. Soft tissues: No significant subcutaneous soft tissue abnormality. IMPRESSION: 1. Findings suggestive of bowel obstruction in the lower abdomen in the region of the sigmoid resection site with possible internal hernia. Small fluid and air collection at the level of obstruction is not excluded. 2. Findings concerning for right gonadal vein thrombosis. 3. Large hiatal hernia noted. 4. Large right renal cyst as described. 5. THIS REPORT CONTAINS FINDINGS THAT MAY BE CRITICAL TO PATIENT CARE. The findings were verbally communicated via telephone conference with MARGARETTE BRANDT at 10:16 PM EDT on 09/19/2024. The findings were acknowledged and understood. Dictated and Authenticated by: Annamaria Adkins MD. Orderin Shaylee Rivas MD
[2024-09-19 22:39] LABS: Bilirubin Negative (Negative); Blood Negative (Negative); Clarity Clear (Clear); Glucose Negative (Negative); Ketones 15 mg/dL (Negative); Leukocyte Esterase Negative (Negative); Nitrite Negative (Negative); Specific Gravity 1.015 (1.005-1.025); Urobilinogen 0.2 mg/dL (Up to 0.2)
[2024-09-20 00:12] VITALS: PULSE 72; O2SAT 92
== END 2024-09-20 00:26 | disposition short-term general hospital (02) ==
PROVIDERS: Emergency Provider Emergency Medicine; PCP Family Medicine
DX: K56.690 Other partial intestinal obstruction (principal); I10 Essential (primary) hypertension; Z93.3 Colostomy status
CPT/HCPCS: 80053; 83690; 96365; 96375; 96376; 99285; 74177; 81003; 83605; 83735; 84484; 85025; J2270; J2405; J3490

== ENCOUNTER 2024-11-02 07:46 | Emergency (ER) | payer MEDICARE, OTHER, SELFPAY ==
[2024-11-02] VITALS (33 sets, daily range): BP systolic 128–190; BP diastolic 65–103; PULSE 60–122; RESP 15–26; TEMP 37; O2SAT 90–96
--- NOTE | 2024-11-02 08:00 | DI.CT_ITS ---
Exam(s) CT ABDOMEN PELVIS W EXAM: CT ABDOMEN PELVIS W CLINICAL HISTORY: left abd pain, recent sbo, ostomy TECHNIQUE: Imaging Protocol: Axial computed tomography images with coronal and sagittal reformatted images were created and reviewed. CONTRAST MATERIAL: Intravenous: Omnipaque 350 Contrast volume:100 mL Oral: No COMPARISON: CT CT ABDOMEN PELVIS W from 09/19/2024 FINDINGS: ABDOMEN: Lung Bases: There is again seen a large hiatal hernia. Coronary artery calcification is present. Liver: Normal density. There again seen several hypodensities in the liver likely reflecting cysts. No suspicious hepatic lesions are seen. Portal, Superior Mesenteric, and Splenic Veins: Unremarkable. Gallbladder and Biliary Tract: Cholelithiasis. The common duct measures up to 1 cm. No choledocholithiasis is identified. Pancreas: Normal density, no abnormal calcifications or inflammatory process. Spleen: Normal. Adrenals: No masses seen. Kidneys: Normal size, contour and axis. No radiodense stones or obstructive uropathy. There is again seen a large right simple cyst. It measures 13.6 x 10.9 cm. No follow-up is recommended. Abdominal Aorta: Abdominal portion non-dilated. Atherosclerotic calcification is present. Bowel: The patient has a left lower quadrant colostomy. There is again seen findings of a prior resection of the sigmoid colon and the descending colon. There is a persistent dilated loop of bowel in the lower central abdomen above the uterus. This bowel loop has a U shaped configuration on the sagittal view. A closed loop obstruction or internal hernia should be considered. (Series 6, image 67). There has been a decrease in the small bowel dilatation proximally since the prior examination dated 09/19/2024. There are few small mildly dilated loops of small bowel in the left abdomen. There is an irregular stellate pattern again seen in the lower central pelvis in the area of the anastomosis. This area is in contact with the superior aspect of the uterus and several bowel loops. There has been a decrease in size of the air-fluid collection previously seen which now measures 2.2 cm (series 8, image 91). This may represent a small abscess. There are diverticula seen in the bowel. Peritoneal Cavity: A small amount of fluid seen in the mesentery in the lower abdomen. No free air. Lymph Nodes: Within normal limits. Bones: Within normal limits for the patient's age. Soft Tissues: There is a midline anterior abdominal wall surgical scar. PELVIS: Bladder: Symmetric distention, no gross wall thickening. Reproductive Organs: There is an enlarged fibroid uterus. There are several calcified uterine fibroids present. Lymph Nodes: Within normal limits. Bones: Within normal limits for the patient's age. IMPRESSION: 1. Status post resection of portions of the descending and sigmoid colon. There is a left lower quadrant colostomy. 2. Persistent stellate pattern in the lower pelvis in the region of the sigmoid resection. This may represent an area of scarring. The scarring may involve the superior aspect of the uterus as there is no fat delineation between the 2 structures. 3. There is a persistently dilated loop of bowel with a U shaped configuration on the coronal view in the area of resection. This may represent a closed loop obstruction or internal hernia. There has been improvement of the proximal small bowel dilatation since 09/19/2024. 4. Interval decrease in size of the air-fluid collection within the stellate scarring which may represent a decrease in size of an abscess. 5. Small amount of free fluid in the mesentery. 6. No pneumoperitoneum. 7. Cholelithiasis. Common duct is stable at up to 1 cm. No choledocholithiasis is present. RADIATION DOSE DELIVERED: 778.66mGy.cm Total DLP DATA REPOSITORY: All CT scans at this facility are submitted to the National Radiology Data Registry (NRDR) Dose Index Registry (DIR) with the [employer] (ACR). RADIATION OPTIMIZATION: All CT scans at this facility use at least one of these dose optimization techniques: automated exposure control; mA and/or kV adjustment per patient size (includes targeted exams where dose is matched to clinical indication); or iterative reconstruction.
--- NOTE | 2024-11-02 08:00 | RT.EKG_ITS ---
APPROVED REPORT Exam: Resting ECG Reason for Exam: abdominal pain Patient Location: E HR:81 bpm ECG Measurements Heart Rate 81 AXIS NE 158 P -4 QRSd 100 QRS -31 QT 401 T 49 QTc 466 Conclusion Sinus rhythm...normal P axis, V-rate 60- 99 Left axis deviation...QRS axis (-30,-90) Consider anterior infarct...Q >30mS in V2-V5
--- NOTE | 2024-11-02 08:13 | W.ED.GENAD ---
Discharge Plan Discharge Details Chief Complaint: Abd Prob Primary Care Provider: Piper Camacho ED Provider: Kae Stallworth Home Meds and New Rx's Prescriptions: No Action losartan 25 mg tablet 25 mg PO ONCE Patient Comments: TAKE ONE TABLET BY MOUTH EVERY DAY FOR HIGH BLODD PRESSURE Discharge Data Discharge Date/Time-TO BE ENTERED AT DEPARTURE: 11/02/24 11:19 HPI General Date/Time Provider Initiated Documentation: 11/02/24 07:47. 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 Reports nausea without vomiting, normal ostomy output, no fever, chills, chest pain, shortness of breath, or urinary symptoms. History of bowel obstruction in 08/2024, different from current pain. No exacerbating or alleviating factors. Related Data Home Medications ?Medication ?Instructions ?Recorded ?Confirmed losartan 25 mg tablet 25 mg PO ONCE 09/19/24 11/02/24 Allergies Allergy/AdvReac Type Severity Reaction Status Date / Time Penicillins Allergy Intermediate Rash Verified 11/02/24 07:53 morphine AdvReac Intermediate Dizziness/L Verified 11/02/24 08:45 ighthead General Stated Complaint: Abd Prob NATASHA: 3 Exam Narrative Exam Narrative: General Appearance: Alert and oriented. Vital signs: Within normal limits. HEENT: Within normal limits. Respiratory: No respiratory distress. Cardiovascular: Heart rate 80, no peripheral edema. Gastrointestinal: Left lower quadrant tenderness without rebound or guarding. Brown stool in ostomy, no obvious blood. Back, Musculoskeletal: No CVA tenderness. Skin: Warm and dry, no rash. Neurological: Normal. Course Vital Signs Vital signs: Vital Signs Temperature 37.0 C 11/02/24 07:48 Pulse 121 H 11/02/24 07:48 Respiratory Rate 20 11/02/24 07:48 Blood Pressure 180/103 H 11/02/24 07:48 Pulse Oximetry 94 11/02/24 07:48 Temperature 37.0 C 11/02/24 07:52 Temperature Source Oral 11/02/24 07:52 Pulse 121 H 11/02/24 07:52 Respiratory Rate 20 11/02/24 07:52 Blood Pressure 180/103 H 11/02/24 07:52 Blood Pressure Position Sitting 11/02/24 07:52 Pulse Oximetry 94 11/02/24 07:52 Oxygen Delivery Method Room Air 11/02/24 07:52 Oxygen Flow Rate 0 11/02/24 07:52 Pain Level 9 11/02/24 07:52 Lab/Test Results Lab/Test Results: 11/02/24 08:03 Blood Blood Culture - Pending 11/02/24 08:03 Blood Blood Culture - Pending Medical Decision Making Results: CBC CMP urinalysis largely unremarkable, CT abdomen and pelvis shows possible abscess at surgical site possible closed-loop bowel obstruction Initial Assessment: 84-year-old female with hypertension and colostomy secondary to colitis and adhesions presents with left lower quadrant pain, nausea, normal ostomy output, no fever, chills, chest pain, shortness of breath, urinary symptoms, or exacerbating/alleviating factors. Differential Diagnosis: - Bowel obstruction: History of bowel obstruction in 08/2024, different from previous episode. Plan: CT abdomen/pelvis. - Colitis: History of colitis, no blood in ostomy output. Plan: Monitor stool. - UTI: No urinary symptoms. Plan: Urinalysis. ED Course: - Ordered CT abdomen/pelvis - Administered morphine 2 mg, Tylenol, Zofran - Reviewed EKG: No QTc prolongation or acute ischemia - Ordered urinalysis - Reassessment: Pulse normalized to 80 - Is feeling some mild improvement after morphine Tylenol and fluids her pulse is normalized she still has tenderness with palpation and is having spasms of pain during which she screams out she does not have any signs of peritonitis clinically - Spoke with Dr. Rivera surgery at [facility] who are well aware of patient and given recent surgery, she will be transferred down for surgical assessment and possible intervention Final Assessment: Left lower quadrant pain and nausea. Ordered CT abdomen/pelvis, managed pain with morphine and Tylenol, administered antiemetics, reviewed EKG, ordered urinalysis, reassessment showed normalized pulse. Clinical Impression: - Left lower quadrant pain - Nausea PFSH Social History Smoking/Tobacco Use Status: Never Smoking risk assessment performed?: Yes Alcohol Intake: never Drug use: Never Substance use type: does not use Housing: house
[2024-11-02] MEDS: MORPHine 10 MG/ML VIAL 2 MG IVP (08:28)
[2024-11-02 08:29] LABS: Abs Immature Grans 0.02 10^3/uL (0.0-0.06); HCT 38.8 % (36.0-46.0); HGB 12.1 g/dL (11.2-15.7); Immature Grans % 0.2 %; MCH 24.2 pg (27.0-33.0); MCHC 31.2 % (32.0-36.0); MCV 78 fL (80-95); MPV 10.9 fL (8.0-11.0); Platelet Count 232 10^3/uL (130-400); RBC 4.99 10^6/uL (3.93-5.22); RDW 16.8 % (11.7-14.6); RDW-SD 47.5 fL; WBC 9.40 10^3/uL (4.4-10.8)
[2024-11-02] MEDS: Ondansetron 4 MG/2 ML VIAL IVP (08:29)
[2024-11-02] MEDS: ACETAMINOPHEN 500 MG/50 ML BAG 200 MG IVPB (08:29)
[2024-11-02 08:48] LABS: ALT 14 U/L (14-59); AST 9 U/L (15-37); Albumin 3.4 g/dL (3.4-5.0); Alkaline Phosphatase 102 U/L (46-116); Anion Gap 8.6 mmol/L (3-11); BUN 11 mg/dL (7-18); Bilirubin, Total 0.7 mg/dL (0.2-1.0); CO2 26.4 mmol/L (21.0-32.0); Calcium 9.1 mg/dL (8.5-10.1); Chloride 105 mmol/L (98-107); Estimated GFR 72.61 (mL/min/1.73m2); Glucose 114 mg/dL (74-106); Lipase 22 U/L (<78); Potassium 4.3 mmol/L (3.5-5.1); Sodium 140 mmol/L (136-145); Total Protein 7.6 g/dL (6.4-8.2)
[2024-11-02] MEDS: Normal Saline - Diluent 50 ML VIAL IJ (09:05)
[2024-11-02] MEDS: Omnipaque 350 MG/ML 100 ML BTL IJ (09:10)
[2024-11-02] MEDS: Normal Saline 500 ML IV (10:23)
[2024-11-02 10:34] LABS: Glucose Negative (Negative)
[2024-11-02 10:45] LABS: C & S Indicated? No; RBC 0-2 HPF (0-2); WBC 0-2 HPF (0-5)
== END 2024-11-02 11:19 | disposition short-term general hospital (02) ==
PROVIDERS: Emergency Provider Physician Assistant; PCP Family Medicine
DX: R10.32 Left lower quadrant pain (principal); R11.0 Nausea; I10 Essential (primary) hypertension; Z93.3 Colostomy status
CPT/HCPCS: 36415; 80053; 83690; 87040; 93005; 96365; 96366; 96375; 99285; 74177; 81003; 81015; 83605; 85025; 93010; 99284; J0131; J2270; J2405; J3490

== ENCOUNTER 2024-12-07 15:14 | Emergency (ER) | payer MEDICARE, OTHER, SELFPAY ==
[2024-12-07 15:17] VITALS: BP 136/85; PULSE 96; RESP 20; TEMP 36.7; O2SAT 96
[2024-12-07 15:28] VITALS: BP 136/85; PULSE 96; RESP 20; TEMP 36.7; O2SAT 96
--- NOTE | 2024-12-07 15:45 | RT.EKG_ITS ---
APPROVED REPORT Exam: Resting ECG Reason for Exam: weakness Patient Location: E HR:83 bpm ECG Measurements Heart Rate 83 AXIS NM 182 P -20 QRSd 97 QRS -30 QT 354 T 32 QTc 416 Conclusion Sinus rhythm...normal P axis, V-rate 60- 99 Left axis deviation...QRS axis (-30,-90)
--- NOTE | 2024-12-07 15:45 | DI.RAD_ITS ---
Exam(s) XR PORTABLE CHEST AP EXAM: XR PORTABLE CHEST AP CLINICAL HISTORY: Dizziness. TECHNIQUE: 2D digital imaging was performed. COMPARISON: CT CT ABDOMEN PELVIS W from 11/02/2024 FINDINGS: Single AP portable view. Heart size is upper normal. The mediastinum is not widened. Right lung is clear. There is density behind the left side of the heart which most probably corresponds to the large hiatal hernia seen at this location on CT scan of 11/02/2024. Is no infiltrate in left lung base at that time. There is no pleural effusion. No pulmonary edema. IMPRESSION: No acute pulmonary findings. Retrocardiac density corresponds to large hiatal hernia which was also evident on CT scan of 11/02/2024. DATA REPOSITORY: RADIATION DOSE DELIVERED:
--- NOTE | 2024-12-07 15:54 | W.ED.GENAD ---
Discharge Plan Disposition Patient Disposition: Home Discharge Details Clinical Impression: Nausea, Stress reaction, Leukocytosis Primary Care Provider: Piper Camacho ED Provider: Miguelangel Avila Home Meds and New Rx's Prescriptions: No Action losartan 25 mg tablet 25 mg PO ONCE Patient Comments: TAKE ONE TABLET BY MOUTH EVERY DAY FOR HIGH BLODD PRESSURE Discharge Instructions Instructions: White Blood Cell Count Differential Test, Anxiety, Adult ED, Nausea and vomiting in adults Additional Instructions: Please follow-up with your primary care provider regarding your visit to the emergency department today. Be sure to discuss results of all test performed here today to include radiology, and laboratory testing as well as results for any pending cultures. Should your symptoms worsen, or if you develop new concerning symptoms, please return immediately emergency department for further evaluation. HPI General Date/Time Provider Initiated Documentation: 12/07/24 15:15. HPI Narrative: MDM/Narrative: Initial Assessment: Patient presents with nausea, shaking, and fogginess. Symptoms ongoing for 4 weeks, with today being the worst. No fever or chills. History of recent surgery for diverticulitis and scar tissue removal. Differential Diagnosis: - Concern for COVID-19: Recent exposure, 's positive test, patient concerned about having it. COVID-19 test to be conducted. - Nausea: Will obtain blood work to rule out metabolic derangement, troponin and EKG to rule out ACS, doubt intestinal obstruction given good ostomy output no vomiting. This also appears to be a chronic problem I suspect secondary to patient's social issues ED Course: - Blood work obtained - COVID-19 test conducted - Intravenous fluids/droperidol administered 17: 25 On reassessment patient notes significant improvement of her symptoms following administration of droperidol and IV fluids. Results shared with him discussed with the patient. Outside of a isolated leukocytosis which is likely reactive due to the patient's overwhelming stress levels, remainder workup is unremarkable. Plan of care discussed with the patient and her daughter agreeable plan for discharge Clinical Impression: - Nausea - Stress reaction Disposition: Discharge home, instructed to return if symptoms worsen or new symptoms develop. Follow-Up: Primary care physician for further evaluation and management. Patient Education: Discussed importance of hydration and monitoring symptoms. Advised to follow up with primary care physician. This document was created with assistance from ASHWIN Leo-. The patient consented to its use. HPI: The patient, with a history of diverticulitis and recent surgical interventions, presents with nausea and tremulousness. The patient reports the onset of symptoms including confusion and indecisiveness beginning two years ago following surgery, with progressive worsening. This morning, she awoke experiencing nausea and tremulousness, mirroring her 's symptoms from earlier in the week. Although her condition was stable yesterday, today she feels mentally foggy, shaky, and nauseous. She denies fever or chills. She describes a chronic dull pain. Nausea has been persistent for the past four weeks, with today being the most severe. She expresses concern about a potential COVID-19 infection due to her 's recent positive test and hypoxemia. Previously, she found relief from nausea by consuming crackers, but the symptom recurs. She has not taken any medication for her current symptoms but recalls receiving antiemetic medication during a previous hospital stay. The patient underwent surgery for diverticulitis with concurrent hernia repair. Postoperatively, she has been unable to consume large quantities of food. Additionally, she had another surgical procedure one month ago for the removal of scar tissue causing obstruction in the small intestine. PAST SURGICAL HISTORY: - Surgery for diverticulitis with hernia repair - Surgery for scar tissue removal obstructing the small intestine (10/2024) ROS: Negative besides as mentioned above Exam: Vital signs: Reviewed. General Appearance: Alert and oriented. No acute distress. Anxious and tearful HEENT: NCAT, EOMI, not icteric. External ears normal. No rhinorrhea. Moist mucous membranes. Neck: Supple, full range of motion, no observable masses, No meningeal sign. Respiratory: Clear to auscultation bilaterally. Cardiovascular: RRR, no edema. Gastrointestinal: Soft, nondistended, No rebound tenderness. Back: No midline tenderness to palpation or palpable step-offs of the C/T/L spine. Skin: Warm and dry, no rash. Neurological: Normal Gait, Grossly intact. Rhythm: NSR Rate: [] [place]: Normal axis Intervals: Normal intervals Other findings: No acute ST segment or T wave changes to suggest acute ischemia. Labs: Laboratory Tests Range/Units 12/07/24 12/07/24 12/07/24 15:40 16:10 16:25 WBC (4.4-10.8) 10^3/uL 12.35 H RBC (3.93-5.22) 10^6/uL 4.22 Hgb (11.2-15.7) g/dL 10.2 L Hct (36.0-46.0) % 32.1 L MCV (80-95) fL 76 L MCH (27.0-33.0) pg 24.2 L MCHC (32.0-36.0) % 31.8 L RDW (11.7-14.6) % 16.8 H Plt Count (130-400) 10^3/uL 235 MPV (8.0-11.0) fL 11.4 H Immature Gran % % 0.5 Neutrophils % % 82.4 Lymphocytes % % 8.7 Monocytes % % 7.3 Eosinophils % % 0.8 Basophils % % 0.3 Nucleated RBC % (0.0-0.3) % 0.0 Absolute Neutrophils (1.2-6.7) 10^3/uL 10.18 H Absolute Lymphocytes (1.2-3.4) 10^3/uL 1.07 L Absolute Monocytes (0.1-0.8) 10^3/uL 0.90 H Absolute Eosinophils (0.0-0.7) 10^3/uL 0.10 Absolute Basophils (0.0-0.2) 10^3/uL 0.04 PT Cancelled 11.1 INR Cancelled 1.1 APTT Cancelled 26.9 VBG Lactate (<or=2.0) mmol/L 2.0 Sodium (136-145) mmol/L 138 Potassium (3.5-5.1) mmol/L 4.0 Chloride (98-107) mmol/L 104 Carbon Dioxide (21.0-32.0) mmol/L 23.6 Anion Gap (3-11) mmol/L 10.4 BUN (7-18) mg/dL 13 Creatinine (0.55-1.02) mg/dL 0.9 Est GFR (CKD-EPI 2020) (mL/min/1.73m2) 63.04 Glucose (74-106) mg/dL 131 H Calcium (8.5-10.1) mg/dL 8.5 Magnesium (1.8-2.4) mg/dL 1.8 Total Bilirubin (0.2-1.0) mg/dL 0.4 AST (15-37) U/L 13 L ALT (14-59) U/L 15 Alkaline Phosphatase (46-116) U/L 90 Troponin I (<or=51) ng/L 5 Total Protein (6.4-8.2) g/dL 7.2 Albumin (3.4-5.0) g/dL 2.8 L Urine Color (Yellow) Urine Clarity (Clear) Urine pH (5-8) Ur Specific [place] (1.005-1.025) Urine Protein (Neg-Trace) mg/dL Urine Ketones (Negative) mg/dL Urine Blood (Negative) Urine Nitrite (Negative) Urine Bilirubin (Negative) Urine Urobilinogen (Up to 0.2) mg/dL Ur Leukocyte Esterase (Negative) Urine RBC (0-2) HPF Urine WBC (0-5) HPF Ur Epithelial Cells (Negative) HPF Urine Crystals (Negative) HPF Urine Bacteria (Negative) HPF Urine Casts (Negative) LPF Urine Mucus (Negative) Ur Culture Indicated? Urine Glucose (Negative) mg/dL COVID-19 Source Nasopharynx SARS-CoV-2 (PCR) (Negative) Negative Influenza Type A (PCR) (Negative) Negative Influenza Type B (PCR) (Negative) Negative RSV (PCR) (Negative) Negative Range/Units 12/07/24 16:35 WBC (4.4-10.8) 10^3/uL RBC (3.93-5.22) 10^6/uL Hgb (11.2-15.7) g/dL Hct (36.0-46.0) % MCV (80-95) fL MCH (27.0-33.0) pg MCHC (32.0-36.0) % RDW (11.7-14.6) % Plt Count (130-400) 10^3/uL MPV (8.0-11.0) fL Immature Gran % % Neutrophils % % Lymphocytes % % Monocytes % % Eosinophils % % Basophils % % Nucleated RBC % (0.0-0.3) % Absolute Neutrophils (1.2-6.7) 10^3/uL Absolute Lymphocytes (1.2-3.4) 10^3/uL Absolute Monocytes (0.1-0.8) 10^3/uL Absolute Eosinophils (0.0-0.7) 10^3/uL Absolute Basophils (0.0-0.2) 10^3/uL PT INR APTT VBG Lactate (<or=2.0) mmol/L Sodium (136-145) mmol/L Potassium (3.5-5.1) mmol/L Chloride (98-107) mmol/L Carbon Dioxide (21.0-32.0) mmol/L Anion Gap (3-11) mmol/L BUN (7-18) mg/dL Creatinine (0.55-1.02) mg/dL Est GFR (CKD-EPI 2020) (mL/min/1.73m2) Glucose (74-106) mg/dL Calcium (8.5-10.1) mg/dL Magnesium (1.8-2.4) mg/dL Total Bilirubin (0.2-1.0) mg/dL AST (15-37) U/L ALT (14-59) U/L Alkaline Phosphatase (46-116) U/L Troponin I (<or=51) ng/L Total Protein (6.4-8.2) g/dL Albumin (3.4-5.0) g/dL Urine Color (Yellow) Yellow Urine Clarity (Clear) Clear Urine pH (5-8) 6.5 Ur Specific [place] (1.005-1.025) 1.010 Urine Protein (Neg-Trace) mg/dL Negative Urine Ketones (Negative) mg/dL Negative Urine Blood (Negative) Trace-intact H Urine Nitrite (Negative) Negative Urine Bilirubin (Negative) Negative Urine Urobilinogen (Up to 0.2) mg/dL 1.0 H Ur Leukocyte Esterase (Negative) Trace H Urine RBC (0-2) HPF 0-2 Urine WBC (0-5) HPF 3-5 Ur Epithelial Cells (Negative) HPF Few Urine Crystals (Negative) HPF Negative Urine Bacteria (Negative) HPF Rare Urine Casts (Negative) LPF Negative Urine Mucus (Negative) Moderate Ur Culture Indicated? No Urine Glucose (Negative) mg/dL Negative COVID-19 Source SARS-CoV-2 (PCR) (Negative) Influenza Type A (PCR) (Negative) Influenza Type B (PCR) (Negative) RSV (PCR) (Negative) Radiology: Exam(s) XR PORTABLE CHEST AP EXAM: XR PORTABLE CHEST AP CLINICAL HISTORY: Dizziness. TECHNIQUE: 2D digital imaging was performed. COMPARISON: CT CT ABDOMEN PELVIS W from 11/02/2024 FINDINGS: Single AP portable view. Heart size is upper normal. The mediastinum is not widened. Right lung is clear. There is density behind the left side of the heart which most probably corresponds to the large hiatal hernia seen at this location on CT scan of 11/02/2024. Is no infiltrate in left lung base at that time. There is no pleural effusion. No pulmonary edema. IMPRESSION: No acute pulmonary findings. Retrocardiac density corresponds to large hiatal hernia which was also evident on CT scan of 11/02/2024. DATA REPOSITORY: RADIATION DOSE DELIVERED: Related Data Home Medications ?Medication ?Instructions ?Recorded ?Confirmed losartan 25 mg tablet 25 mg PO ONCE 09/19/24 12/07/24 Allergies Allergy/AdvReac Type Severity Reaction Status Date / Time Penicillins Allergy Intermediate Rash Verified 12/07/24 15:27 morphine AdvReac Intermediate Dizziness/L Verified 12/07/24 15:27 ighthead General Stated Complaint: [facility] NATASHA: 3 Course Vital Signs Vital signs: Vital Signs Temperature 36.7 C 12/07/24 15:17 Pulse 96 H 12/07/24 15:17 Respiratory Rate 20 12/07/24 15:17 Blood Pressure 136/85 12/07/24 15:17 Pulse Oximetry 96 12/07/24 15:17 Temperature 36.7 C 12/07/24 15:28 Temperature Source Oral 12/07/24 15:28 Pulse 96 H 12/07/24 15:28 Respiratory Rate 20 12/07/24 15:28 Blood Pressure 136/85 12/07/24 15:28 Blood Pressure Position Sitting 12/07/24 15:28 Pulse Oximetry 96 12/07/24 15:28 Oxygen Delivery Method Room Air 12/07/24 15:17 Oxygen Flow Rate 0 12/07/24 15:17 Pain Level 4 12/07/24 15:17 PFSH All Active Problems (Updated 12/07/24 @ 17:42 by Miguelangel Avila MD) Leukocytosis (Acute) Stress reaction (Acute) Nausea (Acute) Social History Smoking/Tobacco Use Status: Never Smoking risk assessment performed?: Yes Alcohol Intake: never Drug use: Never Substance use type: does not use Housing: house
[2024-12-07 16:01] LABS: Abs Immature Grans 0.06 10^3/uL (0.0-0.06); HCT 32.1 % (36.0-46.0); HGB 10.2 g/dL (11.2-15.7); Immature Grans % 0.5 %; MCH 24.2 pg (27.0-33.0); MCHC 31.8 % (32.0-36.0); MCV 76 fL (80-95); MPV 11.4 fL (8.0-11.0); Platelet Count 235 10^3/uL (130-400); RBC 4.22 10^6/uL (3.93-5.22); RDW 16.8 % (11.7-14.6); RDW-SD 46.0 fL; WBC 12.35 10^3/uL (4.4-10.8)
[2024-12-07 16:22] LABS: ALT 15 U/L (14-59); AST 13 U/L (15-37); Albumin 2.8 g/dL (3.4-5.0); Alkaline Phosphatase 90 U/L (46-116); Anion Gap 10.4 mmol/L (3-11); BUN 13 mg/dL (7-18); Bilirubin, Total 0.4 mg/dL (0.2-1.0); CO2 23.6 mmol/L (21.0-32.0); Calcium 8.5 mg/dL (8.5-10.1); Chloride 104 mmol/L (98-107); Estimated GFR 63.04 (mL/min/1.73m2); Glucose 131 mg/dL (74-106); Magnesium 1.8 mg/dL (1.8-2.4); Potassium 4.0 mmol/L (3.5-5.1); Sodium 138 mmol/L (136-145); Total Protein 7.2 g/dL (6.4-8.2); Troponin I 5 ng/L (<or=51)
[2024-12-07] MEDS: Normal Saline 1,000 ML 1000 ML IV (16:43)
[2024-12-07] MEDS: Droperidol 5 MG/2 ML VIAL 2.5 MG IVP (16:44)
[2024-12-07 16:48] LABS: Glucose Negative (Negative)
[2024-12-07 16:49] LABS: INR 1.1 (0.9-1.1); PTT Activated 26.9 sec (20.6-30.2); Prothrombin Time 11.1 sec (9.1-11.1)
[2024-12-07 16:58] LABS: COVID-19 PCR Negative (Negative); RSV PCR Negative (Negative)
[2024-12-07 17:08] VITALS: BP 125/64; PULSE 79; O2SAT 94
[2024-12-07 17:24] LABS: C & S Indicated? No; RBC 0-2 HPF (0-2)
--- NOTE | 2024-12-07 17:38 | NUR.NOTE ---
pt ambulated to the bathroom. slight SOB which she says is her baseline. MD notified. Nursing Note:
== END 2024-12-07 17:50 | disposition home or self-care (01) ==
PROVIDERS: Emergency Provider General Practice; PCP Family Medicine
DX: R11.0 Nausea (principal); D72.829 Elevated white blood cell count, unspecified; R25.1 Tremor, unspecified; F43.0 Acute stress reaction
CPT/HCPCS: 36415; 36416; 80053; 82962; 87637; 93005; 96361; 96374; 99284; 71045; 81003; 81015; 83605; 83735; 84484; 85025; 85610; 85730; 93010; J1790